=== PATIENT | male | born 1960 | race Caucasian/White ===

== ENCOUNTER 2022-07-13 07:24 | Day surgery (SDC) | payer OTHER ==
[2022-07-08 13:24] VITALS: BMI 43.0
[2022-07-13] MEDS ORDERED: TROPICAMIDE 1% OPHTH SOLN 15 ML BOTTLE ONE (07:32)
[2022-07-13] MEDS ORDERED: CIPROFLOXACIN 0.3% EYE DROPS 5 ML BOTTLE ONE (07:32)
[2022-07-13] MEDS ORDERED: PHENYLEPHRINE 2.5% OPHTH SOLN 15 ML BOTTLE ONE (07:32)
[2022-07-13] MEDS: CYCLOPENTOLATE 2% OPHTH SOLN 2 ML BOTTLE ONE ×2 (07:45→07:50)
[2022-07-13] MEDS ORDERED: PHENYLEPHRINE 2.5% OPHTH SOLN 15 ML BOTTLE OS ONE ×2 (07:50→07:55)
[2022-07-13] MEDS ORDERED: CIPROFLOXACIN 0.3% EYE DROPS 5 ML BOTTLE OS ONE ×2 (07:50→07:55)
[2022-07-13] MEDS ORDERED: TROPICAMIDE 1% OPHTH SOLN 15 ML BOTTLE OS ONE ×2 (07:50→07:55)
[2022-07-13] MEDS ORDERED: CYCLOPENTOLATE 2% OPHTH SOLN 2 ML BOTTLE OS ONE (07:55)
[2022-07-13] MEDS ORDERED: MIDAZOLAM HCL 2 MG/2 ML SINGLE DOSE VIAL ONE ×2 (09:06→09:36)
[2022-07-13] MEDS ORDERED: BSS (NA/CA/MG/K) BALANCED SALT SOLUTION OPHTH SOLN 15 ML BOTTLE ONE (09:08)
[2022-07-13] MEDS ORDERED: TETRACAINE 0.5% OPHTH SOLN 2 ML BOTTLE ONE (09:08)
[2022-07-13] MEDS ORDERED: CARBACHOL 0.01% INTRA-OCULAR 1.5 ML VIAL ONE (09:08)
[2022-07-13] MEDS ORDERED: NEO/POLYMYX B SULF/DEXAMETH OPHTHALMIC 5ML BOTTLE ONE (09:08)
[2022-07-13] MEDS ORDERED: LIDOCAINE 1% P/F 10 MG/ML VIAL ONE (09:08)
[2022-07-13] MEDS ORDERED: ACETAMINOPHEN 325 MG TABLET (FP) ONE (09:57)
[2022-07-13 10:09] VITALS: BP 143/86; PULSE 73; RESP 20; TEMP 97.7
== END 2022-07-13 10:10 | disposition home or self-care (01) ==
LOC: FASU 07:24
PROVIDERS: ATTEND Ophthalmology
PROC: 08RK3JZ Replacement of Left Lens with Synthetic Substitute, Percutaneous Approach (ICD-10-PCS; principal; 2022-07-13 09:14)
DX: H26.8 Other specified cataract (principal)
CPT/HCPCS: 66984; V2632

== ENCOUNTER 2022-08-10 08:52 | Day surgery (SDC) | payer OTHER ==
[2022-07-25 10:06] VITALS: BMI 43.0
[2022-08-10] MEDS: CIPROFLOXACIN 0.3% EYE DROPS 5 ML BOTTLE ONE ×3 (09:35→09:45)
[2022-08-10] MEDS: CYCLOPENTOLATE 2% OPHTH SOLN 2 ML BOTTLE ONE ×3 (09:35→09:45)
[2022-08-10] MEDS: PHENYLEPHRINE 2.5% OPHTH SOLN 15 ML BOTTLE ONE ×3 (09:35→09:45)
[2022-08-10] MEDS: TROPICAMIDE 1% OPHTH SOLN 15 ML BOTTLE ONE ×3 (09:35→09:45)
[2022-08-10] MEDS ORDERED: NEO/POLYMYX B SULF/DEXAMETH OPHTHALMIC 5ML BOTTLE ONE (09:49)
[2022-08-10] MEDS ORDERED: BSS (NA/CA/MG/K) BALANCED SALT SOLUTION OPHTH SOLN 15 ML BOTTLE ONE (09:49)
[2022-08-10] MEDS ORDERED: CARBACHOL 0.01% INTRA-OCULAR 1.5 ML VIAL ONE (09:49)
[2022-08-10] MEDS ORDERED: MIDAZOLAM HCL 2 MG/2 ML SINGLE DOSE VIAL ONE ×2 (10:32→11:20)
[2022-08-10 12:18] VITALS: RESP 18
[2022-08-10 12:35] VITALS: TEMP 97.8
[2022-08-10 12:38] VITALS: BP 119/66; PULSE 75
== END 2022-08-10 12:15 | disposition home or self-care (01) ==
LOC: FASU 08:52
PROVIDERS: ATTEND Ophthalmology
PROC: 08RJ3JZ Replacement of Right Lens with Synthetic Substitute, Percutaneous Approach (ICD-10-PCS; principal; 2022-08-10 11:18)
DX: H26.8 Other specified cataract (principal)
CPT/HCPCS: 66984; V2632